=== PATIENT | male | born 1985 | race Caucasian/White ===

== ENCOUNTER 2016-04-15 11:26 | Emergency (ER) | payer OTHER ==
--- NOTE | 2016-04-15 12:20 | EDDOCDS ---
Physician Documentation [facility] Name: Param Estevez Age: 30 yrs Sex: Male : 1985 Arrival Date: 04/15/2016 Time: 11:26 Bed Family 1 Private MD: NICOL RANGEL Disposition: 04/15/16 12:11 Discharged to Home/Self Care. Impression: Acute pharyngitis, unspecified. - Condition is Stable. - Discharge Instructions: Sore Throat. - Prescriptions for magic mouthwash Mucous Membrane Solution - as directed 5 milliliters by ORAL route 3-4 times daily As needed GARGLE, SWISH, SPIT. VISCOUS LIDOCAINE, LIQUID BENADRYL, MAALOX. 1:1:1; 237 milliliter. - Medication Reconciliation, Local Pharmacy Hours form. - Follow up: Emergency Department; When: As needed; Reason: Worsening of conditions. Follow up: Private Physician; When: 2 - 3 days; Reason: Wound/Symptom Recheck, Recheck today's complaints, Continuance of care. - Problem is new. - Symptoms are unchanged. Historical: - Allergies: No known drug Allergies; - Home Meds: 1. Adderall XR 10 mg Oral cp24 twice a day 2. amoxicillin 500 mg Oral cap 1 cap every 8 hours prescribed to his , but he took two yesterday - PMHx: ADHD; - PSHx: none; - Social history: Smoking status: Patient states former smoker of tobacco. No barriers to communication noted, The patient speaks fluent Lithuanian, Speaks appropriately for age. - Family history: Not pertinent. - : The pt / caregiver states he / she is not on anticoagulants. Home medication list is obtained from pill bottles. - Exposure Risk Screening:: None identified. Vital Signs: 04/15 11:32 BP 139 / 68; Pulse 97; Resp 18; Temp 97.8; Pulse Ox 99% ; Weight 77.11 kg / 170 lbs; elp Height 5 ft. 9 in. (175.26 cm); 11:32 Body Mass Index 25.10 (77.11 kg, 175.26 cm) elp MDM: 11:36 Strep Screen, Nursing ordered. dt4 12:06 GATS (NEGATIVE STREP SCREEN) Ordered. EDMS Signatures: Dispatcher [employer] EDMS Selma JenningsRN RN ck1 Jennifer Lee, PALMA-C PAPresleyC dt4 MTDD
--- NOTE | 2016-04-15 12:20 | EDDOCDS ---
Nurse's Notes [facility] Name: Param Estevez Age: 30 yrs Sex: Male : 1985 Arrival Date: 04/15/2016 Time: 11:26 Bed Family 1 Private MD: NICOL RANGEL Diagnosis: Acute pharyngitis, unspecified Presentation: 04/15 11:34 Presenting complaint: Patient states: SO diagnosed with strep throat yesterday. Reports ck1 sore throat. Risk factors: Stridor is not present. Drooling is not present. Shortness of breath is not present. Cellulitis is not present. Adult Sepsis Screening: The patient does not have new or worsening altered mentation. Patient's respiratory rate is less than 22. Systolic blood pressure is greater than 100. Patient has a qSOFA score of 0- Negative Sepsis Screen. Suicide/Homicide risk assessment- the patient denies having any suicidal and/or homicidal ideations and does not present with any other emotional, behavioral or mental health complaints. Status: The patient is an active duty eligibility services representative. Transition of care: patient was not received from another setting of care. 11:34 Acuity: JESSICA Level 4 ck1 11:34 Method Of Arrival: Walkin/Carried/Asstd ck1 Triage Assessment: 11:37 General: Appears in no apparent distress, comfortable, Behavior is appropriate for age, ck1 cooperative. Pain: Location: throat Pain currently is 3 out of 10 on a pain scale. HIV screening NA for this visit Offered previously. EENT: Reports pain Pain is 3 out of 10 on a pain scale. Derm: Skin is pink, warm & dry. Historical: - Allergies: No known drug Allergies; - Home Meds: 1. Adderall XR 10 mg Oral cp24 twice a day 2. amoxicillin 500 mg Oral cap 1 cap every 8 hours prescribed to his , but he took two yesterday - PMHx: ADHD; - PSHx: none; - Social history: Smoking status: Patient states former smoker of tobacco. No barriers to communication noted, The patient speaks fluent Urdu, Speaks appropriately for age. - Family history: Not pertinent. - : The pt / caregiver states he / she is not on anticoagulants. Home medication list is obtained from pill bottles. - Exposure Risk Screening:: None identified. Screenin:18 Screening information is obtained from the patient. Fall risk: No risks identified. ck1 Assistance ADL's: requires no assistance with activities of daily living. Abuse/DV Screen: The patient / caregiver reports he/she is: not in a situation that causes fear, pain or injury. Nutritional screening: No deficits noted. Advance Directives: Currently, there is no health care proxy. home support is adequate. Assessment: 12:18 General: Appears in no apparent distress, comfortable, Behavior is appropriate for age, ck1 cooperative. EENT: Throat is reddened bilaterally with gag reflex present, Reports pain when swallowing Pain is 3 out of 10 on a pain scale. Respiratory: Airway is patent Respiratory effort is unlabored, Respiratory pattern is regular, symmetrical. Derm: Skin is pink, warm & dry. Vital Signs: 11:32 BP 139 / 68; Pulse 97; Resp 18; Temp 97.8; Pulse Ox 99% ; Weight 77.11 kg; Height 5 ft. elp 9 in. (175.26 cm); 11:32 Body Mass Index 25.10 (77.11 kg, 175.26 cm) el Vitals: 11:32 Log In Time: April 15, 2016 at 11:25. [facility] ED Course: 11:29 Patient visited by Mi Pineda PCA. elp 11:29 Patient moved to Waiting elp 11:30 NICOL RANGEL is Private Physician. elp 11:30 Patient moved to Pre RCE elp 11:32 Patient visited by Mi Pineda PCA. elp 11:35 Triage Initiated ck1 11:46 Patient moved to D1 mlb1 11:48 Jennifer Lee [facility] dt4 11:48 Cassie Rojas MD is Attending Physician. dt4 11:48 Patient visited by Jennifer Lee PA-C. dt4 12:07 Patient moved to Family 1 ck1 12:07 GATS (NEGATIVE STREP SCREEN) Sent. ck1 12:18 The patient / caregiver is instructed regarding the plan of care and ED course. ck1 12:18 No IV's were initiated during this patient's visit. No procedures done that require ck1 assistance. Order Results: There are currently no results for this order. Outcome: 12:11 Discharge ordered by Provider. dt4 12:17 Discharge Assessment: Patient awake, alert and oriented x 3. No cognitive and/or ck1 functional deficits noted. Patient verbalized understanding of disposition instructions. patient administered narcotics - no. The following High Risk Discharge criteria are identified: None. Discharged to home ambulatory. Condition: stable. Discharge instructions given to patient, Instructed on discharge instructions, follow up and referral plans. medication usage, Demonstrated understanding of instructions, medications, Pt was receptive of discharge instructions/ teaching. Prescriptions given X 1. No special radiology studies were completed. Property :Personal belongings accompany Pt. 12:19 Patient left the ED. ck1 Signatures: Christ Yun, RN RN mlb1 Selma JenningsRN RN ck1 Mi Pineda, SENIOR AUDIT MANAGER SENIOR AUDIT MANAGER ariesp Jennifer Lee, RITA PAJesse dt4 MTDD
--- NOTE | 2016-04-17 13:20 | EDDOCDS ---
Nurse's Notes [facility] Name: Param Estevez Age: 30 yrs Sex: Male : 1985 Arrival Date: 04/15/2016 Time: 11:26 Bed Family 1 Private MD: NICOL RANGEL Diagnosis: Acute pharyngitis, unspecified Presentation: 04/15 11:34 Presenting complaint: Patient states: SO diagnosed with strep throat yesterday. Reports ck1 sore throat. Risk factors: Stridor is not present. Drooling is not present. Shortness of breath is not present. Cellulitis is not present. Adult Sepsis Screening: The patient does not have new or worsening altered mentation. Patient's respiratory rate is less than 22. Systolic blood pressure is greater than 100. Patient has a qSOFA score of 0- Negative Sepsis Screen. Suicide/Homicide risk assessment- the patient denies having any suicidal and/or homicidal ideations and does not present with any other emotional, behavioral or mental health complaints. Status: The patient is an active duty in shop service technician. Transition of care: patient was not received from another setting of care. 11:34 Acuity: JESSICA Level 4 ck1 11:34 Method Of Arrival: Walkin/Carried/Asstd ck1 Triage Assessment: 11:37 General: Appears in no apparent distress, comfortable, Behavior is appropriate for age, ck1 cooperative. Pain: Location: throat Pain currently is 3 out of 10 on a pain scale. HIV screening NA for this visit Offered previously. EENT: Reports pain Pain is 3 out of 10 on a pain scale. Derm: Skin is pink, warm & dry. Historical: - Allergies: No known drug Allergies; - Home Meds: 1. Adderall XR 10 mg Oral cp24 twice a day 2. amoxicillin 500 mg Oral cap 1 cap every 8 hours prescribed to his , but he took two yesterday - PMHx: ADHD; - PSHx: none; - Social history: Smoking status: Patient states former smoker of tobacco. No barriers to communication noted, The patient speaks fluent Tajik, Speaks appropriately for age. - Family history: Not pertinent. - : The pt / caregiver states he / she is not on anticoagulants. Home medication list is obtained from pill bottles. - Exposure Risk Screening:: None identified. Screenin:18 Screening information is obtained from the patient. Fall risk: No risks identified. ck1 Assistance ADL's: requires no assistance with activities of daily living. Abuse/DV Screen: The patient / caregiver reports he/she is: not in a situation that causes fear, pain or injury. Nutritional screening: No deficits noted. Advance Directives: Currently, there is no health care proxy. home support is adequate. Assessment: 12:18 General: Appears in no apparent distress, comfortable, Behavior is appropriate for age, ck1 cooperative. EENT: Throat is reddened bilaterally with gag reflex present, Reports pain when swallowing Pain is 3 out of 10 on a pain scale. Respiratory: Airway is patent Respiratory effort is unlabored, Respiratory pattern is regular, symmetrical. Derm: Skin is pink, warm & dry. Vital Signs: 11:32 BP 139 / 68; Pulse 97; Resp 18; Temp 97.8; Pulse Ox 99% ; Weight 77.11 kg; Height 5 ft. elp 9 in. (175.26 cm); 11:32 Body Mass Index 25.10 (77.11 kg, 175.26 cm) el Vitals: 11:32 Log In Time: April 15, 2016 at 11:25. [facility] ED Course: 11:29 Patient visited by Mi Pineda PCA. elp 11:29 Patient moved to Waiting elp 11:30 NICOL RANGEL is Private Physician. elp 11:30 Patient moved to Pre RCE elp 11:32 Patient visited by Mi Pineda PCA. elp 11:35 Triage Initiated ck1 11:46 Patient moved to D1 mlb1 11:48 Jennifer Lee [facility]-C [facility] dt4 11:48 Cassie Rojas MD is Attending Physician. dt4 11:48 Patient visited by Jennifer Lee PA-C. dt4 12:07 Patient moved to Family 1 ck1 12:07 GATS (NEGATIVE STREP SCREEN) Sent. ck1 12:18 The patient / caregiver is instructed regarding the plan of care and ED course. ck1 12:18 No IV's were initiated during this patient's visit. No procedures done that require ck1 assistance. 13:15 [facility] Payment Agreement was scanned into [employer] and attached to record. 04/17 08:01 T-Sheet-- Draft Copy was scanned into [employer] and attached to record. lg Order Results: Lab Order: GATS (NEGATIVE STREP SCREEN); SPEC'M 04/15/16 12:00 Test: GATS CULTURE (NEG STREP SCR); Value: GATS RESULT NEGATIVE FOR STREP PYOGENES (GROUP A); Status: F Test: GATS CULTURE (NEG STREP SCR); Value: <EXTERNAL COMMENT eCWMed> FULL REPORT IN LAB NOTES (eCW and Medent).; Status: F Outcome: 04/15 12:11 Discharge ordered by Provider. dt4 12:17 Discharge Assessment: Patient awake, alert and oriented x 3. No cognitive and/or ck1 functional deficits noted. Patient verbalized understanding of disposition instructions. patient administered narcotics - no. The following High Risk Discharge criteria are identified: None. Discharged to home ambulatory. Condition: stable. Discharge instructions given to patient, Instructed on discharge instructions, follow up and referral plans. medication usage, Demonstrated understanding of instructions, medications, Pt was receptive of discharge instructions/ teaching. Prescriptions given X 1. No special radiology studies were completed. Property :Personal belongings accompany Pt. 12:19 Patient left the ED. ck1 Signatures: Bhumi Carmen, Reg Reg Christ Coulter RN RN mlb1 Selma JenningsRN RN ck1 Mi Pineda, LIZZ CARE TRANSITIONS NURSE Jennifer Nance, RITA PAJesse dt4 Chart Complete MTDD
--- NOTE | 2016-04-17 13:20 | EDDOCDS ---
Physician Documentation [facility] Name: Param Estevez Age: 30 yrs Sex: Male : 1985 Arrival Date: 04/15/2016 Time: 11:26 Bed Family 1 Private MD: NICOL RANGEL Disposition: 04/15/16 12:11 Discharged to Home/Self Care. Impression: Acute pharyngitis, unspecified. - Condition is Stable. - Discharge Instructions: Sore Throat. - Prescriptions for magic mouthwash Mucous Membrane Solution - as directed 5 milliliters by ORAL route 3-4 times daily As needed GARGLE, SWISH, SPIT. VISCOUS LIDOCAINE, LIQUID BENADRYL, MAALOX. 1:1:1; 237 milliliter. - Medication Reconciliation, Local Pharmacy Hours form. - Follow up: Emergency Department; When: As needed; Reason: Worsening of conditions. Follow up: Private Physician; When: 2 - 3 days; Reason: Wound/Symptom Recheck, Recheck today's complaints, Continuance of care. - Problem is new. - Symptoms are unchanged. Historical: - Allergies: No known drug Allergies; - Home Meds: 1. Adderall XR 10 mg Oral cp24 twice a day 2. amoxicillin 500 mg Oral cap 1 cap every 8 hours prescribed to his , but he took two yesterday - PMHx: ADHD; - PSHx: none; - Social history: Smoking status: Patient states former smoker of tobacco. No barriers to communication noted, The patient speaks fluent Portuguese, Speaks appropriately for age. - Family history: Not pertinent. - : The pt / caregiver states he / she is not on anticoagulants. Home medication list is obtained from pill bottles. - Exposure Risk Screening:: None identified. Vital Signs: 04/15 11:32 BP 139 / 68; Pulse 97; Resp 18; Temp 97.8; Pulse Ox 99% ; Weight 77.11 kg / 170 lbs; elp Height 5 ft. 9 in. (175.26 cm); 11:32 Body Mass Index 25.10 (77.11 kg, 175.26 cm) elp MDM: 11:36 Strep Screen, Nursing ordered. dt4 12:06 GATS (NEGATIVE STREP SCREEN) Ordered. EDMS 13:15 [facility] Payment Agreement was scanned into [employer] and attached to record. 04/17 08:01 T-Sheet-- Draft Copy was scanned into [employer] and attached to record. lg Signatures: Dispatcher [employer] Bhumi Lowry, Reg Reg lg Selma JenningsRN RN ck1 Jennifer Lee, RITA SALINAS dt4 The chart was reviewed and I authenticate all verbal orders and agree with the evaluation and treatment provided.Attachments: 04/15 13:15 [facility] Payment Agreement 04/17 08:01 T-Sheet-- Draft Copy lg Chart Complete MTDD
--- NOTE | 2016-04-17 13:20 | EDDOCDS ---
Physician Documentation [facility] Name: Param Estevez Age: 30 yrs Sex: Male : 1985 Arrival Date: 04/15/2016 Time: 11:26 Bed Family 1 Private MD: NICOL RANGEL Disposition: 04/15/16 12:11 Discharged to Home/Self Care. Impression: Acute pharyngitis, unspecified. - Condition is Stable. - Discharge Instructions: Sore Throat. - Prescriptions for magic mouthwash Mucous Membrane Solution - as directed 5 milliliters by ORAL route 3-4 times daily As needed GARGLE, SWISH, SPIT. VISCOUS LIDOCAINE, LIQUID BENADRYL, MAALOX. 1:1:1; 237 milliliter. - Medication Reconciliation, Local Pharmacy Hours form. - Follow up: Emergency Department; When: As needed; Reason: Worsening of conditions. Follow up: Private Physician; When: 2 - 3 days; Reason: Wound/Symptom Recheck, Recheck today's complaints, Continuance of care. - Problem is new. - Symptoms are unchanged. Historical: - Allergies: No known drug Allergies; - Home Meds: 1. Adderall XR 10 mg Oral cp24 twice a day 2. amoxicillin 500 mg Oral cap 1 cap every 8 hours prescribed to his , but he took two yesterday - PMHx: ADHD; - PSHx: none; - Social history: Smoking status: Patient states former smoker of tobacco. No barriers to communication noted, The patient speaks fluent Arabic, Speaks appropriately for age. - Family history: Not pertinent. - : The pt / caregiver states he / she is not on anticoagulants. Home medication list is obtained from pill bottles. - Exposure Risk Screening:: None identified. Vital Signs: 04/15 11:32 BP 139 / 68; Pulse 97; Resp 18; Temp 97.8; Pulse Ox 99% ; Weight 77.11 kg / 170 lbs; elp Height 5 ft. 9 in. (175.26 cm); 11:32 Body Mass Index 25.10 (77.11 kg, 175.26 cm) elp MDM: 11:36 Strep Screen, Nursing ordered. dt4 12:06 GATS (NEGATIVE STREP SCREEN) Ordered. EDMS 13:15 [facility] Payment Agreement was scanned into [employer] and attached to record. 04/17 08:01 T-Sheet-- Draft Copy was scanned into [employer] and attached to record. lg Signatures: Dispatcher [employer] Bhumi Lowry, Reg Reg lg Selma JenningsRN RN ck1 Jennifer Lee, RITA SALINAS dt4 The chart was reviewed and I authenticate all verbal orders and agree with the evaluation and treatment provided.Attachments: 04/15 13:15 [facility] Payment Agreement 04/17 08:01 T-Sheet-- Draft Copy lg Chart Complete MTDD
== END 2016-04-15 12:19 | disposition home or self-care (01) ==
LOC: M ED 11:26
DX: J02.9 Acute pharyngitis, unspecified (principal); F90.9 Attention-deficit hyperactivity disorder, unspecified type; Z87.891 Personal history of nicotine dependence; Z79.899 Other long term (current) drug therapy

== ENCOUNTER 2016-06-23 03:47 | Emergency (ER) | payer OTHER ==
[~2016-06-23] VITALS: Ht 175.3 cm; Wt 78.9 kg
[2016-06-23] MEDS ORDERED: NAPR500T2 PO (04:00)
[2016-06-23] MEDS ORDERED: BACT800T5 PO (04:00)
[2016-06-23] MEDS ORDERED: FLOM5CAP PO (04:01)
[2016-06-23] MEDS ORDERED: CONC54TA4 (04:01)
[2016-06-23] MEDS ORDERED: ZOFR20TA PO (04:02)
[2016-06-23] MEDS ORDERED: NS 1,000 ML IV ONE (04:45)
[2016-06-23 04:59] LABS: BASO % 0.3 % (0.0-1.0); EOS # 0.3 K/mm3 (0.0-0.50); EOS % 3.3 % (0.0-3.0); LARGE UNSTAINED CELL % 0.5 % (0.0-4.0); LYMPH # 0.9 K/mm3 (1.5-6.5); LYMPH % 10.8 % (24.0-44.0); MEAN CORPUSCULAR HEMOGLOBIN 29.8 pg (27.0-33.0); MEAN CORPUSCULAR HGB CONC 34.3 g/dl (32.0-36.5); MEAN CORPUSCULAR VOLUME 86.9 fl (80.0-96.0); MONO # 0.2 K/mm3 (0.0-0.8); NEUTROPHILS # 6.6 K/mm3 (1.8-7.7); NEUTROPHILS % 82.2 % (36.0-66.0); PLATELET COUNT, AUTOMATED 205 k/mm3 (150-450); RED CELL DISTRIBUTION WIDTH 12.7 % (11.5-14.5)
[2016-06-23 05:14] LABS: ALBUMIN 3.8 GM/DL (3.2-5.2); ALBUMIN/GLOBULIN RATIO 1.31 (1.00-1.93); ALKALINE PHOSPHATASE 71 U/L (45-117); ALT/SGPT 48 U/L (12-78); ANION GAP 6 MEQ/L (8-16); AST/SGOT 18 U/L (15-37); BILIRUBIN,DIRECT 0.2 MG/DL (0.0-0.2); BILIRUBIN,TOTAL 0.9 MG/DL (0.2-1.0); BLOOD UREA NITROGEN 17 MG/DL (7-18); CALCIUM LEVEL 8.2 MG/DL (8.5-10.1); CARBON DIOXIDE LEVEL 30 MEQ/L (21-32); CHLORIDE LEVEL 103 MEQ/L (98-107); CREATININE FOR GFR 1.09 MG/DL (0.70-1.30); GLOMERULAR FILTRATION RATE > 60.0 (>60); GLUCOSE, FASTING 104 MG/DL (70-105); POTASSIUM SERUM 4.2 MEQ/L (3.5-5.1); SODIUM LEVEL 139 MEQ/L (136-145); TOTAL PROTEIN 6.7 GM/DL (6.4-8.2)
[2016-06-23] MEDS ORDERED: ONDANSETRON 4MG/2ML VIAL (J2405) IV ONE (06:00)
[2016-06-23] MEDS ORDERED: ZOFR4TAB3 PO (06:28)
[2016-06-23 06:38] VITALS: BP 130/68
== END 2016-06-23 06:40 | disposition home or self-care (01) ==
LOC: M ED 05:04
DX: R11.2 Nausea with vomiting, unspecified (principal); Z79.899 Other long term (current) drug therapy; Z79.1 Long term (current) use of non-steroidal anti-inflammatories (NSAID)
CPT/HCPCS: 80048; 80076; 83690; 85025; 96374; 99282; J2405